=== PATIENT | male | born 1960 | race Caucasian/White ===

== ENCOUNTER 2017-12-27 07:54 | Outpatient (CLI) | payer MEDICARE ==
--- NOTE | 2017-12-27 09:38 | CT ---
CONTRAST ENHANCED CTA ABDOMEN AND PELVIS CONTRAST ENHANCED CTA BILATERAL RUN OFF: History: Atherosclerosis with multiple lower extremity endovascular stents. Technique: Contrast enhanced CTA is performed. 2D and 3D reconstructed images performed on an 2threads 3D workstation. FINDINGS: The lung bases are unremarkable. The liver is unremarkable. Numerous gallstones seen in the gallbladder. The pancreas is unremarkable. Adrenal glands unremarkable. Calcifications seen in the lower pole of the right kidney compatible with nonobstructing lower pole a pproximately 3 mm calculus. No evidence of hydroureteronephrosis is seen. No evidence of periaortic lymphadenopathy is seen. No dilated loops of small bowel or colon seen. Atherosclerotic calcifications seen in the SMA and celiac arteries. Some atherosclerotic plaque is al so seen in the right and left renal artery. No significant evidence of high grade renal artery stenosis seen. Calcified and noncalcified plaque seen in the right and left common iliac artery. Right lower extremity: Minimal but not significant evidence of a right common iliac artery stenosis seen. The right external iliac artery is patent. The right common femoral artery is also patent. Endovascular stent seen in the proximal right SFA, as well as along the course of the entire right gonzalez perficial femoral artery. This vessel and stents are patent in the SFA. The right popliteal artery is patent. The right anterior tibial artery is occluded. Endovascular stents seen in the origin of the right posterior tibial artery as well as the right peroneal artery. There is some minimal flow in the mid and distal aspect of both of these arteries in the right lower extremity. Left lower extremity: The left common and external iliac arteries contain some calcified and noncalcified plaques. No evide nce of high grade occlusion seen. Some surgical changes seen in the origin of the left superficial fe moral artery as well as in the distal left common femoral artery. Flow is seen in the left proximal m id superficial femoral artery. Atherosclerotic plaque is seen in the distal aspect without evidence o f occlusion of the left SFA. Some flow is seen in the left popliteal artery proximally. The left popl iteal artery is occluded in the mid aspect. Endovascular stent seen in the distal left popliteal christianne ry as well as the origin of the left posterior tibial and peroneal artery. Collateral flows are seen in the left knee providing some flow to the left peroneal artery and left posterior tibial arteries. The left anterior artery is occluded. IMPRESSION: 1. Extensive post trifurcation bilateral disease. The left popliteal artery is occluded with collater al flow provided to the left post trifurcation artery distally. 2. Cholelithiasis. POS: C
[2017-12-27] MEDS ORDERED: Iopamidol 370 76% 100 ML VIAL ONE (15:18)
[2017-12-27 16:36] LABS: Estimated GFR-MDRD - POC Greater than 90
== END 2017-12-27 07:55 | disposition home or self-care (01) ==
LOC: CT 07:54
PROVIDERS: ATTEND Thoracic Surgery (Cardiothoracic Vascular Surgery)
DX: I25.119 Atherosclerotic heart disease of native coronary artery with unspecified angina pectoris (principal); I70.213 Atherosclerosis of native arteries of extremities with intermittent claudication, bilateral legs; K80.20 Calculus of gallbladder without cholecystitis without obstruction; I70.8 Atherosclerosis of other arteries
CPT/HCPCS: 75635; 82565

== ENCOUNTER 2019-02-09 09:44 | Inpatient (IN) | payer MEDICARE ==
[2019-02-09] MEDS ORDERED: Ondansetron PF 4 MG/2 ML Vial ONE (10:41)
[2019-02-09 10:52] LABS: #Basophils 0.1 thou/uL (0.0-0.2); #Monocytes 0.6 thou/uL (0.11-0.59); #Neutrophils 5.8 thou/uL (1.40-6.50); %Basophils 0.8 % (0.0-1.0); %Eosinophils 0.6 % (0.0-10.0); %Lymphocytes 12.8 % (21.0-51.0); %Monocytes 8.2 % (0.0-10.0); %Neutrophils 77.7 % (42.0-75.0); Hemoglobin 16.3 g/dL (14.0-18.0); Mean Corpuscular HGB CONC 34.8 g/dL (32.0-36.0); Mean Corpuscular Hemoglobin 31.9 pg (27.0-31.0); Mean Corpuscular Volume 91.7 fL (78.0-98.0); Mean Platelet Volume 7.7 fL (7.4-10.4); Platelet Count 188 thou/uL (130-400); RBC Distribution Width 13.8 % (11.5-14.5); Red Blood Cell (RBC) Count 5.12 mill/uL (4.70-6.10); White Blood Cell (WBC) Count 7.4 thou/uL (4.8-10.8)
[2019-02-09 11:25] LABS: ALT (SGPT) 44 U/L (8-55); AST (SGOT) 77 U/L (5-34); Albumin 4.7 g/dL (3.5-5.0); Alkaline Phosphatase 42 U/L (40-150); Anion Gap 22 mmol/L (10-20); BUN (Urea Nitrogen) 37 mg/dL (8.4-25.7); Bilirubin, Total 0.4 mg/dL (0.2-1.2); CK (CPK) 73 U/L (30-200); Calc. Creatinine Clearance 0 mL/min (70-130); Calcium 9.7 mg/dL (7.8-10.44); Carbon Dioxide 13 mmol/L (22-29); Chloride 97 mmol/L (98-107); Estimated GFR-MDRD 18; Globulin 3.4 g/dL (2.4-3.5); Glucose 187 mg/dL (70-105); Lipase 20 U/L (8-78); Potassium 3.9 mmol/L (3.5-5.1); Protein, Total 8.1 g/dL (6.0-8.3); Sodium 128 mmol/L (136-145)
[2019-02-09] MEDS ORDERED: HumaLOG 300 UNITS/3 ML VIAL SC PRN ×2 (13:28)
[2019-02-09] MEDS ORDERED: Dextrose 5% in Water 1,000 ML IV PRN (13:28)
[2019-02-09] MEDS ORDERED: Dextrose 50% Abboject 50 ML SYRINGE SLOW IVP PRN (13:28)
[2019-02-09] MEDS ORDERED: HYDROcodone/Acetaminophen 7.5/325 mg Tablet PO PRN (13:29)
[2019-02-09] MEDS ORDERED: Ondansetron PF 4 MG/2 ML Vial IVP PRN (13:29)
[2019-02-09] MEDS ORDERED: Calcium Carbonate 500 MG ChewTAB PO PRN (13:29)
[2019-02-09] MEDS ORDERED: Senokot S 8.6-50 MG TAB PO PRN (13:29)
[2019-02-09] MEDS ORDERED: Acetaminophen 325 MG TAB PO PRN (13:29)
[2019-02-09] MEDS ORDERED: Ondansetron ODT 4 MG TAB PO PRN (13:29)
[2019-02-09] MEDS ORDERED: HYDROcodone/Acetaminophen 5/325 mg Tablet PO PRN (13:29)
[2019-02-09] MEDS ORDERED: Bisacodyl 5 MG TAB PO PRN (13:29)
[2019-02-09] MEDS ORDERED: Benzonatate 100 MG CAP PO PRN (13:33)
[2019-02-09] MEDS ORDERED: hydrALAZINE 20 MG/ML VIAL SLOW IVP PRN (13:33)
[2019-02-09] MEDS ORDERED: Docusate 100 MG CAP PO PRN (13:33)
[2019-02-09] MEDS ORDERED: diphenhydrAMINE 25 MG CAP PO PRN (13:33)
--- NOTE | 2019-02-09 15:00 | CON ---
DATE OF CONSULTATION: 02/09/2019 CONSULTING PHYSICIAN: Bhupinder Ceron MD. REASON FOR CONSULTATION: Acute kidney injury. REASON FOR ADMISSION: Weakness. HISTORY OF PRESENT ILLNESS: A 58-year-old male with history of CAD and multiple stents, type 2 diabetes, hypertension, and hyperlipidemia, came to the hospital with weakness and was found to have elevated creatinine. Nephrology is consulted. No chest pain or palpitation. No abdominal pain, but the patient has been having some GI symptoms including diarrhea and vomiting over the last few days and not able to take anything orally. The patient family contacts and also the neighborhood. PAST MEDICAL HISTORY: Positive for CAD, peripheral vascular disease, type 2 diabetes, hypertension, and hyperlipidemia. PAST SURGICAL HISTORY: Cardiac stents and lower extremity stents. HOME MEDICATIONS: Reviewed. ALLERGIES: PENICILLIN. SOCIAL HISTORY: Smokes 1 pack per day and occasionally drinking alcohol. FAMILY HISTORY: Positive for coronary artery disease. REVIEW OF SYSTEMS: CONSTITUTIONAL: Negative for weight loss or gain, ability to conduct usual activities. SKIN: Negative for rash, itching. EYES: Negative for double vision, pain. ENT/MOUTH: Negative for nose bleeding, neck stiffness, pain, tenderness. CARDIOVASCULAR: Negative for palpitations, dyspnea on exertion, orthopnea. RESPIRATORY: Negative for shortness of breath, wheezing, cough, hemoptysis, fever or night sweats. GASTROINTESTINAL: Negative for poor appetite, abdominal pain, heartburn, nausea, vomiting, constipation, or diarrhea. GENITOURINARY: Negative for urgency, frequency, dysuria, nocturia. MUSCULOSKELETAL: Negative for pain, swelling. NEUROLOGIC/PSYCHIATRIC: Negative for anxiety, depression. ALLERGY/IMMUNOLOGIC: Negative for skin rash, bleeding tendency. PHYSICAL EXAMINATION: GENERAL: This is a well-built male, in no apparent distress. VITAL SIGNS: Temperature 96, pulse 79, respiratory rate 18, blood pressure 158/78. HEENT: Atraumatic and normocephalic. Oral mucosa moist. NECK: Supple. CV: S1 and S2 heard. Rate and rhythm are regular. RESPIRATORY: Clear to auscultation. GASTROINTESTINAL: Abdomen is soft. MUSCULOSKELETAL: 1+ edema. DERMATOLOGIC: No skin rash. NEUROLOGIC: Alert and awake. PSYCHIATRIC: Normal mood and affect. LABORATORY DATA: Hemoglobin 16.3. Potassium 3.9, sodium is 129, BUN is 37, creatinine 3.6. ASSESSMENT AND PLAN: 1. Acute kidney injury, most likely from volume depletion. His last creatinine was around 1.3 to 1.08. 2. Hyponatremia. Continue IV fluids. 3. Acidosis. Continue IV fluids. 4. Edema, controlled. 5. Hypertension. 6. Cardiorenal syndrome. 7. Hemoconcentration. Plan is to continue IV fluids. Monitor renal function. Agree with renal ultrasound. Avoid nephrotoxins. Renally dose the medications. We will continue to follow. Thank you for the consult. Job ID: [id number]
[2019-02-09 15:23] VITALS: BMI 27.1
[2019-02-09] MEDS: Sodium Chloride 0.9% 1,000 ML IV SCH (15:47)
--- NOTE | 2019-02-09 15:51 | HP ---
CHIEF COMPLAINT: Nausea, vomiting, diarrhea, and dehydration. HISTORY OF PRESENT ILLNESS: Mr. Carvajal is a very pleasant 58-year-old white gentleman with past medical history of diabetes mellitus, hypertension, hyperlipidemia, coronary artery disease status post coronary artery bypass grafting, and osteoarthritis, who presents with 3 days of worsening nausea, vomiting, and diarrhea. The patient was found to be severely dehydrated with an elevated creatinine of 3.62 on arrival and Nephrology was consulted for further recommendations. The patient's baseline creatinine function is less than 1.0 on prior laboratory studies. I find the patient in the emergency department, he is sitting upright in bed, in no apparent distress, breathing well on room air. The patient states that he thinks he picked up a stomach bug from his neighbor who was sick recently. The patient has had no episodes of vomiting since Sunday morning, though he states he did vomit roughly 10 times. The patient denies black or blood in the vomit. The patient since Sunday has had continuous diarrhea. The patient denies any black or blood in the diarrhea. The patient has no cramping or severe abdominal pains. The patient does have some soreness in the musculature of the back. He states is from going to the bathroom so many times. The patient does try to stay hydrated and has been drinking a lot of Gatorade since the time of illness. When the patient's symptoms were not improving, he was concerned about his dehydration level and he came to the hospital for further evaluation. The patient admitted to medical unit with telemetry for further evaluation. REVIEW OF SYSTEMS: A 10-point review of systems was performed and negative aside of what mentioned in history of present illness. PAST MEDICAL HISTORY: 1. Diabetes mellitus. 2. Hypertension. 3. Hyperlipidemia. 4. Coronary artery disease status post coronary artery bypass grafting. 5. Peripheral arterial disease with multiple stents placement in the legs. 6. Gout. 7. Osteoarthritis. HOME MEDICATIONS: 1. Metformin 1000 mg one tablet p.o. b.i.d. 2. Glipizide 2.5 mg one tablet p.o. daily. 3. Clonidine 0.1 mg one tablet p.o. at bedtime. 4. Coenzyme Q10 200 mg one tablet p.o. daily. 5. Ramipril 10 mg one tablet p.o. daily. 6. Omeprazole 20 mg one tablet p.o. daily. 7. [place]-3 fatty acid fish oil one tablet p.o. t.i.d. 8. [place] 5 mg one tablet p.o. q.4 hours p.r.n. pain. 9. Fenofibrate 145 mg one tablet p.o. daily. 10. Colchicine 0.6 mg one tablet p.o. b.i.d. 11. Plavix 75 mg one tablet p.o. daily. 12. Carvedilol 12.5 mg one tablet p.o. b.i.d. 13. Atorvastatin 10 mg one tablet p.o. daily. 14. Aspirin 325 mg one tablet p.o. daily. ALLERGIES: CODEINE, PENICILLINS. PHYSICAL EXAMINATION: VITAL SIGNS: Temperature 98.7, pulse 85, blood pressure 135/86, and O2 saturation 97% on room air. GENERAL: The patient is alert, oriented, and cooperative with exam. The patient is in no acute cardiopulmonary distress. HEENT: Head is normocephalic and atraumatic. Pupils are equal, round, reactive to light and accommodation. Extraocular muscles intact. Vision is grossly intact. Throat is negative for exudates or erythema around the tonsils. CARDIAC: S1 and S2 present. No appreciated murmurs, rubs, or gallops. LUNGS: Lungs are clear to auscultation bilaterally without appreciated wheezing, rales, or rhonchi. ABDOMEN: Obese, soft, nontender, nondistended without focal guarding or rigidity. There are no appreciated abdominal bruits or hepatosplenomegaly. MUSCULOSKELETAL: Adequate alignment of the spine. Range of motion intact. Spine and extremities are grossly symmetrical and intact with strength. EXTREMITIES: Lower extremities; no significant lower extremity edema bilaterally. NEUROLOGIC: Cranial nerves 2 through 12 are grossly intact. Strength and sensation are symmetric and intact throughout. Skin: Skin is normal in color, texture, and turgor. There are no appreciated lesions or rashes. PSYCHIATRIC: The patient is alert and oriented x3, and has good insight into his clinical condition. The patient has normal affect. No abnormal behaviors or hallucinations. LABORATORY DATA: WBC 7.4, hemoglobin 16.3, hematocrit 46.9, platelets 188. Sodium 128, potassium 3.9, chloride 97, carbon dioxide 13, anion gap 22, BUN 37, creatinine 3.62, estimated GFR 18, glucose 187, calcium 9.7, total bilirubin 0.4, AST 77, ALT 44, alkaline phosphatase 42, creatine kinase 73. Serum total protein 8.1, albumin 4.7, lipase 20. ASSESSMENT/PLAN: 1. Acute renal failure. The patient with severe diarrhea and vomiting for the past several days, now presenting with acute kidney injury. The patient's baseline creatinine is less than 1.0 from prior laboratory data. We will obtain a renal ultrasound. Urinalysis. Urine culture as indicated. Nephrology consultation requested for further recommendations. The patient has already received 3 L of IV fluid in the emergency department. We will continue the patient on normal saline maintenance therapy. 2. Hyponatremia-secondary to profound dehydration as above. 3. Uncontrolled diabetes mellitus. 4. Hypertension. 5. Coronary artery disease status post coronary artery bypass grafting. 6. Peripheral arterial disease with multiple stents in the legs. 7. Elevated BMI. 8. Hyperlipidemia. 9. Gout. Job ID: [id number]
[2019-02-09] MEDS: Carvedilol 6.25 MG TAB PO SCH (16:35)
--- NOTE | 2019-02-09 17:42 | ULT ---
RENAL ULTRASOUND: Date: 02-09-19 Comparison: None. History: Renal insufficiency. Technique: Multiplanar grayscale sonographic imaging of the kidneys and the urinary bladder obtained. FINDINGS: Right kidney measures 10.0 x 5.6 x 4.8 cm. Cortical thickness is 1.5 cm. No right renal mass, hydrone phrosis, or renal stone noted. Urinary bladder demonstrates a volume of approximately 81 cc. Left kidney measures 11.9 x 6.5 x 5.5 cm with a cortical thickness of approximately 2.1 cm. No renal mass, hydronephrosis, or stone noted on the left. IMPRESSION: No acute findings. POS: OFF
[2019-02-10] MEDS: Sodium Chloride 0.9% 1,000 ML IV SCH ×2 (05:40→18:25)
[2019-02-10 06:33] LABS: #Eosinphils 0.1 thou/uL (0.0-0.7); #Lymphocytes 1.1 thou/uL (1.20-3.40); #Monocytes 0.6 thou/uL (0.11-0.59); #Neutrophils 2.7 thou/uL (1.40-6.50); %Basophils 0.9 % (0.0-1.0); %Lymphocytes 25.1 % (21.0-51.0); %Monocytes 12.5 % (0.0-10.0); %Neutrophils 59.5 % (42.0-75.0); Mean Corpuscular HGB CONC 34.6 g/dL (32.0-36.0); Mean Corpuscular Hemoglobin 31.2 pg (27.0-31.0); Mean Corpuscular Volume 90.3 fL (78.0-98.0); Mean Platelet Volume 7.6 fL (7.4-10.4); Platelet Count 169 thou/uL (130-400); RBC Distribution Width 13.5 % (11.5-14.5); Red Blood Cell (RBC) Count 4.18 mill/uL (4.70-6.10); White Blood Cell (WBC) Count 4.6 thou/uL (4.8-10.8)
[2019-02-10 06:56] LABS: Anion Gap 12 mmol/L (10-20); BUN (Urea Nitrogen) 17 mg/dL (8.4-25.7); Calc. Creatinine Clearance 95 mL/min (70-130); Carbon Dioxide 19 mmol/L (22-29); Chloride 104 mmol/L (98-107); Estimated GFR-MDRD 73; Glucose 139 mg/dL (70-105); Sodium 132 mmol/L (136-145)
[2019-02-10] MEDS: Clopidogrel Bisulfate 75 MG TAB PO SCH (08:05)
[2019-02-10] MEDS: Carvedilol 6.25 MG TAB PO SCH ×2 (08:05→16:15)
[2019-02-10] MEDS: Aspirin 325 mg Enteric Coated Tablet PO SCH (08:05)
--- NOTE | 2019-02-10 11:31 | PDOC.HOSPP ---
- Subjective Subjective: Seen and examined. Still with diarrhea all through the night, though he states that is a little improved. Afebrile. Normal WBC count. Able to keep liquids down. Clinically improving. - Objective Vital Signs & Weight: Vital Signs (12 hours) Temp Pulse Resp BP BP Pulse Ox 02/10/19 08:05 128/82 97 02/10/19 07:18 98.0 F 74 20 128/82 97 02/10/19 04:00 98.1 F 85 20 130/78 98 02/10/19 00:41 98.3 F 89 18 132/75 97 Weight Weight 189 lb I&O: 02/09/19 02/10/19 02/11/19 06:59 06:59 06:59 Intake Total 240 Balance 240 Result Diagrams: 02/10/19 05:51 02/10/19 05:51 Additional Labs: Accuchecks 02/10/19 02/09/19 02/09/19 04:49 19:05 16:06 POC Glucose 141 H 161 H 183 H Radiology Reviewed by me: Yes (Renal US) Hospitalist ROS - Review of Systems All other systems reviewed; all pertinent +/- noted in HPI/Subj - Medication Medications: Active Medications Generic Name Dose Route Start Last Admin Trade Name Freq PRN Reason Stop Dose Admin Aspirin 325 mg 02/10/19 09:00 02/10/19 08:05 Ecotrin PO 325 mg DAILY CARY Administration Carvedilol 12.5 mg 02/09/19 17:00 02/10/19 08:05 Coreg PO 12.5 mg BID-WM CARY Administration Clopidogrel Bisulfate 75 mg 02/10/19 09:00 02/10/19 08:05 Plavix PO Not Given DAILY CARY Sodium Chloride 1,000 mls @ 75 mls/hr 02/09/19 13:45 02/10/19 05:40 Normal Saline 0.9% IV 1,000 mls .[id number] CARY Administration Pantoprazole Sodium 40 mg 02/10/19 09:00 02/10/19 08:04 Protonix PO 40 mg DAILY CARY Administration - Exam General Appearance: NAD, awake alert Eye: anicteric sclera Neck: supple, symmetric Heart: RRR, no murmur, no gallops, no rubs Respiratory: CTAB, no wheezes, no rales Gastrointestinal: soft, non-tender, normal bowel sounds, no palpable masses, no guarding, no rigidity Extremities: no edema Skin: no lesions, no rashes Neurological: cranial nerve grossly intact, no weakness Musculoskeletal: no muscle wasting Psychiatric: normal affect, A&O x 3 Hosp A/P (1) NICOLE (acute kidney injury) Code(s): N17.9 - ACUTE KIDNEY FAILURE, UNSPECIFIED Status: Acute (2) Gastroenteritis Code(s): K52.9 - NONINFECTIVE GASTROENTERITIS AND COLITIS, UNSPECIFIED Status : Acute (3) Diarrhea Code(s): R19.7 - DIARRHEA, UNSPECIFIED Status: Acute (4) Dehydration Code(s): E86.0 - DEHYDRATION Status: Acute (5) Vomiting Code(s): R11.10 - VOMITING, UNSPECIFIED Status: Resolved (6) DM type 2, uncontrolled, with neuropathy Code(s): E11.40 - TYPE 2 DIABETES MELLITUS WITH DIABETIC NEUROPATHY, UNSP; E11.65 - TYPE 2 DIABETES MELLITUS WITH HYPERGLYCEMIA Status: Chronic (7) HTN (hypertension) Code(s): I10 - ESSENTIAL (PRIMARY) HYPERTENSION Status: Chronic (8) CAD (coronary artery disease) Code(s): I25.10 - ATHSCL HEART DISEASE OF [place] CORONARY ARTERY W/O ANG PCTRS Status: Chronic (9) PAD (peripheral artery disease) Code(s): I73.9 - PERIPHERAL VASCULAR DISEASE, UNSPECIFIED Status: Chronic - Plan Plan: medical unit/surgical unit nephrology consultation, recommendations appreciated IV fluid resuscitation renal ultrasound noted continue oral intake as able symptomatic medications for nausea and vomiting patient is afebrile normal WBC count no indication for antibiotics at this time viral gastroenteritis will need to run its course renal function is now improving, will anticipate discharge in the next 24 to 48 hours pending clinical improvement patient still with high-volume diarrhea and is at risk for dehydration, when diarrhea slows and oral intake is adequate will plan for discharge home home medications to be continued as able PRN medications for blood pressure control replace electrolytes as needed
[2019-02-11] MEDS: Sodium Chloride 0.9% 1,000 ML IV SCH (05:46)
[2019-02-11 07:40] LABS: Anion Gap 16 mmol/L (10-20); BUN (Urea Nitrogen) 9 mg/dL (8.4-25.7); Calc. Creatinine Clearance 122 mL/min (70-130); Calcium 8.7 mg/dL (7.8-10.44); Carbon Dioxide 16 mmol/L (22-29); Chloride 105 mmol/L (98-107); Estimated GFR-MDRD Greater than 90; Glucose 158 mg/dL (70-105); Potassium 3.2 mmol/L (3.5-5.1); Sodium 134 mmol/L (136-145)
[2019-02-11] MEDS: Carvedilol 6.25 MG TAB PO SCH (09:21)
[2019-02-11] MEDS: Clopidogrel Bisulfate 75 MG TAB PO SCH (09:22)
[2019-02-11] MEDS: Aspirin 325 mg Enteric Coated Tablet PO SCH (09:22)
[2019-02-11 13:13] VITALS: BP 146/59; TEMP 98.3
--- NOTE | 2019-02-12 | DIS ---
DATE OF ADMISSION: 02/09/2019 DATE OF DISCHARGE: 02/11/2019 REASON FOR HOSPITALIZATION: Nausea, vomiting, diarrhea. SIGNIFICANT FINDINGS: The patient was profoundly dehydrated with acute kidney injury on admission. PROCEDURES PERFORMED AND TREATMENTS RENDERED: The patient was placed on IV fluid resuscitation and had nephrology consultation, please see full consultation and progress notes for details. With maximum medical therapy, the patient's renal function normalized and his diarrhea resolved. CONDITION ON DISCHARGE: Stable. SPECIFIC INSTRUCTIONS FOR THE PATIENT/FAMILY: 1. The patient is recommended to stay well hydrated and drink adequate amount of hypertonic solution either Pedialyte or Gatorade daily. The patient is recommended to return to acute care hospital immediately if he is unable to keep liquids down or if he is feeling dehydrated. The patient is recommended to return to acute care hospital immediately if diarrhea or any worsening of other symptoms return. 2. The patient is recommended to follow up with primary care physician in the next 5 to 7 days. 3. The patient is recommended to return to acute care hospital immediately if signs or symptoms return, worsen, or any other new symptoms occur. DISCHARGE MEDICATIONS: Please see full discharge medication list for detail. 1. Metformin. 2. Glipizide. 3. Clonidine. 4. Coenzyme Q10. 5. Ramipril. 6. Omeprazole. 7. [place]-3 fatty acids/fish oil. 8. Hydrocodone. 9. Fenofibrate. 10. Colchicine. 11. Plavix. 12. Carvedilol. 13. Atorvastatin. 14. Aspirin. HOSPITAL COURSE: Mr. Carvajal is a very pleasant 58-year-old gentleman, who presented to [facility] on 02/09/2019 with dehydration, nausea, vomiting, and diarrhea. He was found to have acute kidney injury with a baseline creatinine level of less than 1. On admission, creatinine of 3.62. The patient was seen and evaluated by Urology, had appropriate IV fluid resuscitation and with maximum medical therapy, his creatinine normalized to a level of 0.82 on the day of discharge on 02/11/2019. Stool studies confirmed that the patient was infected with Salmonella in the stool. Treatment for this in review of the literature is mainly supportive therapy and antibiotics actually worsens and prolongs the extent of diarrhea. The patient is afebrile. The patient with normal white blood cell count. The patient's abdominal discomfort and diarrhea have resolved. Due to the dramatic improvement of patient's symptoms with symptomatic therapy and IV hydration, no antibiotic therapy is indicated at this time. I explicitly informed the patient that if future episodes of diarrhea occur, he must be evaluated for carrier state and in extreme cases, surgical involvement for possible removal of the gallbladder may be indicated. The patient acknowledges these risks and state that he will return to the hospital immediately if signs or symptoms return, worsen, or any other new symptoms occur. The patient also states that he will discuss carrier state and salmonella infection with his primary care physician in the outpatient clinic in the next 5 to 7 days. The patient recommended safe for discharge with close followup in the outpatient setting. The patient recommended to stay well hydrated with hypertonic solution either Pedialyte or Gatorade. The patient is recommended to return to acute care hospital immediately if he is unable to maintain hydration or if he is unable to keep fluids down. The patient is recommended to return to acute care hospital immediately if signs or symptoms return, worsen, or any other new symptoms occur. Greater than 38 minutes spent coordinating care and discharge process for this patient. Job ID: [id number]
--- NOTE | 2019-02-13 19:34 | PQF ---
[employer] Reports [employer] NING Barrera ERIC LAXMI HALL [id number] [facility] [id number] CLINICAL DOCUMENTATION CLARIFICATION FORM: POST DISCHARGE Addendum to original discharge summary date: ____ Late entry note date: __ DATE: 02/13/19 ATTN: Laxmi Luna Please exercise your independent, professional judgment in responding to the clarification form. Clinical indicators are provided on the bottom of this form for your review Can you please further specify the diagnosis based on the clinical indicators below? Please check appropriate box(s): [ ] Gastroenteritis due to salmonella [ ] Viral Gastroenteritis [ ] Gastroenteritis unspecified [ ] Other diagnosis please specified [ ] Unable to determine In addition, please specify: Present on Admission (POA): [ ] Yes [ ] No [ ] Unable to determine For continuity of documentation, please document condition throughout progress notes and discharge summary. Thank You. CLINICAL INDICATORS - SIGNS / SYMPTOMS / LABS H and P 02/09 pg.1- "Chief complaint: Nausea, vomiting, diarrhea, and dehydration " H and P 02/09 pg.1-"The patient since sunday has had continous diarrhea" Hospitalist PN pg.3 "Gastroenteritis" Hospitalist PN pg.3 - Viral gastroenteritis will need to runc its cource DS 02/11 pg.1- "The patient was profoundly dehaydrated with acute kidney injury " DS 02/11 pg.2 -"Stool studies confirmed that the patient was infected with Salmonella in the stool" Microbiology 02/09- "Stool culture- Salmonella Group E or G" RISK FACTORS Acute renal failure- H and P pg.3 Hyponatremia- H and P pg.3 Dehydration= H and P pg.3 Diarrhea- H and P pg.1 TREATMENTS: IV Fluids- JUL 27 Stool Culture- Microbiology (This form is maintained as a part of the permanent medical record) 2014 [employer]. All Rights Reserved [email or web address] [not provided] [email or web address]
== END 2019-02-11 11:49 | disposition home or self-care (01) | DRG 683 ==
LOC: ERS 09:44 → T4-B 11:45
PROVIDERS: ADMIT Internal Medicine; ATTEND Internal Medicine
DX: N17.9 Acute kidney failure, unspecified (principal); E87.1 Hypo-osmolality and hyponatremia; E87.2 Acidosis; A08.4 Viral intestinal infection, unspecified; E86.0 Dehydration; I10 Essential (primary) hypertension; E78.5 Hyperlipidemia, unspecified; I25.10 Atherosclerotic heart disease of native coronary artery without angina pectoris; F17.210 Nicotine dependence, cigarettes, uncomplicated; E11.65 Type 2 diabetes mellitus with hyperglycemia; E11.40 Type 2 diabetes mellitus with diabetic neuropathy, unspecified; M19.90 Unspecified osteoarthritis, unspecified site; M10.9 Gout, unspecified; E11.51 Type 2 diabetes mellitus with diabetic peripheral angiopathy without gangrene; Z79.84 Long term (current) use of oral hypoglycemic drugs; Z79.82 Long term (current) use of aspirin; Z79.899 Other long term (current) drug therapy; Z95.1 Presence of aortocoronary bypass graft; Z88.0 Allergy status to penicillin; Z88.5 Allergy status to narcotic agent
CPT/HCPCS: 36415; 36416; 76770; 80048; 80053; 82550; 83690; 85025; 87045; 87046; 87077; 87186; 87324; 87328; 87329; 87427; 87449; 93005; 96361; 96374; J2405

== ENCOUNTER 2020-11-17 11:05 | Inpatient (IN) | payer MEDICARE ==
[~2020-11-17 11:05] MED LIST: Heparin 10,000 UNITS/ 10 ML VIAL ONE; Iopamidol 370 76% 100 ML VIAL ONE; Iopamidol 370 76% 50 ML VIAL FS ONE
[2020-11-17] MEDS ORDERED: Nitroglycerin 2% Ointment 1 INCH/1 GM Packet ONE (11:35)
[2020-11-17] MEDS ORDERED: Aspirin Chewable 81 MG TAB ONE (11:38)
[2020-11-17 11:39] LABS: #Basophils 0.1 thou/uL (0.0-0.2); #Eosinphils 0.4 thou/uL (0.0-0.7); #Lymphocytes 1.7 thou/uL (1.20-3.40); #Monocytes 0.5 thou/uL (0.11-0.59); #Neutrophils 5.6 thou/uL (1.40-6.50); %Basophils 0.9 % (0.0-1.0); %Eosinophils 5.2 % (0.0-10.0); %Lymphocytes 20.8 % (21.0-51.0); %Monocytes 6.5 % (0.0-10.0); %Neutrophils 66.6 % (42.0-75.0); Hemoglobin 12.8 g/dL (14.0-18.0); Mean Corpuscular HGB CONC 34.2 g/dL (32.0-36.0); Mean Corpuscular Hemoglobin 33.9 pg (27.0-31.0); Mean Corpuscular Volume 99.1 fL (78.0-98.0); Mean Platelet Volume 7.9 fL (7.4-10.4); Platelet Count 228 thou/uL (130-400); RBC Distribution Width 12.7 % (11.5-14.5); Red Blood Cell (RBC) Count 3.79 mill/uL (4.70-6.10); White Blood Cell (WBC) Count 8.4 thou/uL (4.8-10.8)
[2020-11-17] MEDS ORDERED: Aspirin 325 MG TAB ONE ×2 (11:39→11:40)
[2020-11-17] MEDS ORDERED: Aspirin 81 mg Enteric Coated Tablet ONE (11:40)
[2020-11-17] MEDS ORDERED: Lidocaine 1% (PF) 30 ML VIAL ONE (11:45)
[2020-11-17] MEDS ORDERED: Fentanyl 100 MCG/2 ML VIAL ONE ×2 (12:03→14:12)
[2020-11-17] MEDS ORDERED: Midazolam HCl 2 mg/2 ml Vial ONE (12:04)
[2020-11-17 12:26] LABS: ALT (SGPT) 26 U/L (8-55); AST (SGOT) 32 U/L (5-34); Albumin 4.7 g/dL (3.5-5.0); Alkaline Phosphatase 47 U/L (40-110); Anion Gap 12 mmol/L (10-20); BUN (Urea Nitrogen) 12 mg/dL (8.4-25.7); Bilirubin, Total 0.6 mg/dL (0.2-1.2); CK (CPK) 99 U/L (30-200); Calc. Creatinine Clearance 0 mL/min (70-130); Calcium 9.7 mg/dL (7.8-10.44); Carbon Dioxide 26 mmol/L (22-29); Chloride 100 mmol/L (98-107); Globulin 2.5 g/dL (2.4-3.5); Glucose 162 mg/dL (70-105); Lipase 26 U/L (8-78); Potassium 4.4 mmol/L (3.5-5.1); Protein, Total 7.2 g/dL (6.0-8.3); Sodium 134 mmol/L (136-145)
[2020-11-17] MEDS ORDERED: Heparin 10,000 UNITS/ 10 ML VIAL ONE (12:39)
[2020-11-17] MEDS ORDERED: TICAGRELOR 90 MG TABLET ONE (13:03)
[2020-11-17 13:05] LABS: CKMB 1.9 ng/mL (0-6.6)
[2020-11-17 14:07] LABS: CKMB 1.8 ng/mL (0-6.6)
[2020-11-17 14:29] LABS: Troponin I 0.792 ng/mL (< 0.028)
[2020-11-17 17:52] VITALS: BMI 30.6
[2020-11-17] MEDS: Sodium Chloride 0.9% 1,000 ML IV SCH (18:36)
[2020-11-17] MEDS ORDERED: Fentanyl 100 MCG/2 ML VIAL SLOW IVP SCH (18:45)
[2020-11-17] MEDS: Rosuvastatin 20 MG TAB PO SCH (20:11)
[2020-11-17 20:33] LABS: CKMB 1.9 ng/mL (0-6.6)
[2020-11-17 20:48] LABS: Troponin I 0.947 ng/mL (< 0.028)
[2020-11-17] MEDS ORDERED: TICAGRELOR 90 MG TABLET PO SCH (21:00)
[2020-11-17] MEDS: ALPRAZolam 0.25 MG TAB PO PRN (22:07)
[2020-11-18] MEDS: Nitroglycerin 0.4 MG TAB (25 Tab Bottle) SL PRN ×2 (04:29→05:24)
[2020-11-18] MEDS ORDERED: Nitroglycerin 2% Ointment 1 INCH/1 GM Packet TOP SCH (05:45)
[2020-11-18 05:58] LABS: #Eosinphils 0.3 thou/uL (0.0-0.7); #Lymphocytes 1.3 thou/uL (1.20-3.40); #Monocytes 0.5 thou/uL (0.11-0.59); #Neutrophils 5.3 thou/uL (1.40-6.50); %Basophils 0.4 % (0.0-1.0); %Eosinophils 3.9 % (0.0-10.0); %Lymphocytes 17.9 % (21.0-51.0); %Monocytes 6.5 % (0.0-10.0); %Neutrophils 71.3 % (42.0-75.0); Hemoglobin 11.6 g/dL (14.0-18.0); Mean Corpuscular HGB CONC 36.5 g/dL (32.0-36.0); Mean Corpuscular Hemoglobin 35.7 pg (27.0-31.0); Mean Corpuscular Volume 97.9 fL (78.0-98.0); Mean Platelet Volume 7.9 fL (7.4-10.4); Platelet Count 181 thou/uL (130-400); RBC Distribution Width 12.7 % (11.5-14.5); Red Blood Cell (RBC) Count 3.24 mill/uL (4.70-6.10); White Blood Cell (WBC) Count 7.4 thou/uL (4.8-10.8)
[2020-11-18 06:16] LABS: ALT (SGPT) 19 U/L (8-55); AST (SGOT) 32 U/L (5-34); Albumin 4.1 g/dL (3.5-5.0); Alkaline Phosphatase 43 U/L (40-110); Anion Gap 15 mmol/L (10-20); BUN (Urea Nitrogen) 9 mg/dL (8.4-25.7); Bilirubin, Total 0.7 mg/dL (0.2-1.2); Calc. Creatinine Clearance 117 mL/min (70-130); Calcium 8.9 mg/dL (7.8-10.44); Carbon Dioxide 19 mmol/L (22-29); Chloride 104 mmol/L (98-107); Globulin 2.5 g/dL (2.4-3.5); Glucose 166 mg/dL (70-105); Potassium 4.2 mmol/L (3.5-5.1); Protein, Total 6.6 g/dL (6.0-8.3); Sodium 134 mmol/L (136-145)
[2020-11-18] MEDS: Sodium Chloride 0.9% 1,000 ML IV SCH (06:18)
[2020-11-18] MEDS: Aspirin Chewable 81 MG TAB PO SCH (08:04)
[2020-11-18] MEDS: Clopidogrel Bisulfate 75 MG TAB PO SCH (08:04)
[2020-11-18 11:25] LABS: SARS-CoV-2 PCR by NAA Not Detected (NotDetected)
[2020-11-18] MEDS ORDERED: Dextrose 5% in Water 1,000 ML IV PRN (14:30)
[2020-11-18] MEDS ORDERED: Dextrose 50% Abboject 50 ML SYRINGE IVP PRN (14:30)
[2020-11-18 14:36] LABS: #Eosinphils 0.3 thou/uL (0.0-0.7); #Lymphocytes 1.4 thou/uL (1.20-3.40); #Monocytes 0.5 thou/uL (0.11-0.59); %Basophils 0.5 % (0.0-1.0); %Eosinophils 4.1 % (0.0-10.0); %Lymphocytes 22.2 % (21.0-51.0); %Monocytes 7.5 % (0.0-10.0); %Neutrophils 65.7 % (42.0-75.0); Hemoglobin 12.3 g/dL (14.0-18.0); Mean Corpuscular HGB CONC 36.9 g/dL (32.0-36.0); Mean Corpuscular Hemoglobin 35.8 pg (27.0-31.0); Mean Corpuscular Volume 97.1 fL (78.0-98.0); Mean Platelet Volume 7.5 fL (7.4-10.4); Platelet Count 186 thou/uL (130-400); RBC Distribution Width 12.5 % (11.5-14.5); Red Blood Cell (RBC) Count 3.44 mill/uL (4.70-6.10); White Blood Cell (WBC) Count 6.1 thou/uL (4.8-10.8)
[2020-11-18 14:49] LABS: Anion Gap 15 mmol/L (10-20); BUN (Urea Nitrogen) 8 mg/dL (8.4-25.7); Calc. Creatinine Clearance 116 mL/min (70-130); Calcium 9.5 mg/dL (7.8-10.44); Carbon Dioxide 19 mmol/L (22-29); Chloride 107 mmol/L (98-107); Glucose 157 mg/dL (70-105); Potassium 4.3 mmol/L (3.5-5.1); Sodium 137 mmol/L (136-145)
[2020-11-18] MEDS: ALPRAZolam 0.25 MG TAB PO PRN (14:49)
[2020-11-18] MEDS: Insulin Regular 300 UNITS/3 ML VIAL SC PRN (17:13)
[2020-11-18] MEDS ORDERED: ALPRAZolam 0.25 MG TAB PO SCH (21:30)
[2020-11-18] MEDS: Rosuvastatin 20 MG TAB PO SCH (21:34)
[2020-11-18] MEDS ORDERED: Insulin Regular 300 UNITS/3 ML VIAL SC PRN (22:00)
[2020-11-19 05:05] LABS: #Eosinphils 0.3 thou/uL (0.0-0.7); #Lymphocytes 1.3 thou/uL (1.20-3.40); #Monocytes 0.4 thou/uL (0.11-0.59); %Basophils 0.3 % (0.0-1.0); %Eosinophils 3.9 % (0.0-10.0); %Lymphocytes 18.6 % (21.0-51.0); %Monocytes 6.2 % (0.0-10.0); Hemoglobin 12.3 g/dL (14.0-18.0); Mean Corpuscular HGB CONC 34.9 g/dL (32.0-36.0); Mean Corpuscular Hemoglobin 34.2 pg (27.0-31.0); Mean Platelet Volume 8.1 fL (7.4-10.4); Platelet Count 183 thou/uL (130-400); RBC Distribution Width 12.9 % (11.5-14.5); Red Blood Cell (RBC) Count 3.59 mill/uL (4.70-6.10); White Blood Cell (WBC) Count 7.1 thou/uL (4.8-10.8)
[2020-11-19 05:25] LABS: ALT (SGPT) 17 U/L (8-55); AST (SGOT) 29 U/L (5-34); Albumin 4.2 g/dL (3.5-5.0); Alkaline Phosphatase 50 U/L (40-110); Anion Gap 16 mmol/L (10-20); BUN (Urea Nitrogen) 8 mg/dL (8.4-25.7); Bilirubin, Total 0.6 mg/dL (0.2-1.2); Calc. Creatinine Clearance 108 mL/min (70-130); Calcium 9.1 mg/dL (7.8-10.44); Carbon Dioxide 17 mmol/L (22-29); Chloride 108 mmol/L (98-107); Globulin 2.6 g/dL (2.4-3.5); Glucose 184 mg/dL (70-105); Potassium 4.2 mmol/L (3.5-5.1); Protein, Total 6.8 g/dL (6.0-8.3); Sodium 137 mmol/L (136-145)
[2020-11-19] MEDS: Insulin Regular 300 UNITS/3 ML VIAL SC PRN ×2 (06:19→11:37)
[2020-11-19] MEDS ORDERED: glipiZIDE 5 MG TAB PO SCH ×2 (07:30→16:30)
[2020-11-19] MEDS: Aspirin Chewable 81 MG TAB PO SCH (08:35)
[2020-11-19] MEDS: Clopidogrel Bisulfate 75 MG TAB PO SCH (08:36)
[2020-11-19] MEDS ORDERED: Pioglitazone HCl 15 MG TAB PO SCH (09:00)
[2020-11-19 11:55] VITALS: TEMP 98.9
[2020-11-19 12:21] VITALS: BP 175/82
[2020-11-19] MEDS ORDERED: Icosapent Ethyl 1 GM CAPSULE PO SCH (17:00)
[2020-11-19] MEDS ORDERED: Amitriptyline HCl 10 MG TAB PO SCH (21:00)
[2020-11-19] MEDS ORDERED: cloNIDine 0.1 MG TAB PO SCH (21:00)
[2020-11-19] MEDS ORDERED: Carvedilol 25 MG TAB PO SCH (21:00)
[2020-11-19] MEDS ORDERED: GABAPENTIN ENACARBIL 600 MG PO SCH (21:00)
[2020-11-19] MEDS ORDERED: Amlodipine 5 MG TAB PO SCH (21:00)
[2020-11-20] MEDS ORDERED: Tamsulosin HCl 0.4 MG CAP PO SCH (09:00)
[2020-11-20] MEDS ORDERED: Pioglitazone HCl 15 MG TAB PO SCH (09:00)
== END 2020-11-19 15:45 | disposition home or self-care (01) | DRG 247 ==
LOC: ERS 11:05 → CCL 12:07 → SURG A 13:05 → 2NO 17:36
PROVIDERS: ADMIT Internal Medicine Cardiovascular Disease; ATTEND Internal Medicine Cardiovascular Disease
PROC: 027034Z Dilation of Coronary Artery, One Artery with Drug-eluting Intraluminal Device, Percutaneous Approach (ICD-10-PCS; principal; 2020-11-17)
PROC: 02C03ZZ Extirpation of Matter from Coronary Artery, One Artery, Percutaneous Approach (ICD-10-PCS; 2020-11-17)
PROC: 4A023N7 Measurement of Cardiac Sampling and Pressure, Left Heart, Percutaneous Approach (ICD-10-PCS; 2020-11-17)
PROC: B2111ZZ Fluoroscopy of Multiple Coronary Arteries using Low Osmolar Contrast (ICD-10-PCS; 2020-11-17)
DX: I21.19 ST elevation (STEMI) myocardial infarction involving other coronary artery of inferior wall (principal); I50.32 Chronic diastolic (congestive) heart failure; I25.810 Atherosclerosis of coronary artery bypass graft(s) without angina pectoris; I11.0 Hypertensive heart disease with heart failure; E78.5 Hyperlipidemia, unspecified; I25.5 Ischemic cardiomyopathy; F41.9 Anxiety disorder, unspecified; E11.51 Type 2 diabetes mellitus with diabetic peripheral angiopathy without gangrene; E11.40 Type 2 diabetes mellitus with diabetic neuropathy, unspecified; Z95.5 Presence of coronary angioplasty implant and graft; Z88.0 Allergy status to penicillin; Z88.5 Allergy status to narcotic agent; Z95.1 Presence of aortocoronary bypass graft; Z88.8 Allergy status to other drugs, medicaments and biological substances
CPT/HCPCS: 36415; 36416; 71045; 76942; 80053; 82550; 82553; 83690; 83880; 84484; 85025; 85347; 92941; 93005; 93010; 93306; 93459; 93798; 96374; 99152; 99153; C1769; C9606; J1644; J1815; J2001; J2250; J3010; Q9967; U0003; U0005

== ENCOUNTER 2020-11-25 07:25 | Observation (INO) | payer MEDICARE ==
[2020-11-25 07:59] LABS: #Basophils 0.1 thou/uL (0.0-0.2); #Eosinphils 0.3 thou/uL (0.0-0.7); #Lymphocytes 1.8 thou/uL (1.20-3.40); #Monocytes 0.5 thou/uL (0.11-0.59); #Neutrophils 5.4 thou/uL (1.40-6.50); %Basophils 0.7 % (0.0-1.0); %Eosinophils 4.3 % (0.0-10.0); %Lymphocytes 22.3 % (21.0-51.0); %Monocytes 6.1 % (0.0-10.0); %Neutrophils 66.6 % (42.0-75.0); Hemoglobin 13.5 g/dL (14.0-18.0); Mean Corpuscular HGB CONC 34.3 g/dL (32.0-36.0); Mean Corpuscular Hemoglobin 33.7 pg (27.0-31.0); Mean Corpuscular Volume 98.3 fL (78.0-98.0); Platelet Count 265 thou/uL (130-400); RBC Distribution Width 12.4 % (11.5-14.5); White Blood Cell (WBC) Count 8.1 thou/uL (4.8-10.8)
[2020-11-25 08:23] LABS: ALT (SGPT) 20 U/L (8-55); AST (SGOT) 32 U/L (5-34); Albumin 4.6 g/dL (3.5-5.0); Alkaline Phosphatase 52 U/L (40-110); Anion Gap 20 mmol/L (10-20); BUN (Urea Nitrogen) 19 mg/dL (8.4-25.7); Bilirubin, Total 0.4 mg/dL (0.2-1.2); Calc. Creatinine Clearance 0 mL/min (70-130); Calcium 10.6 mg/dL (7.8-10.44); Carbon Dioxide 19 mmol/L (22-29); Chloride 104 mmol/L (98-107); Globulin 2.8 g/dL (2.4-3.5); Glucose 209 mg/dL (70-105); Lipase 35 U/L (8-78); Protein, Total 7.4 g/dL (6.0-8.3); Sodium 138 mmol/L (136-145)
[2020-11-25 08:35] LABS: CKMB 1.7 ng/mL (0-6.6)
[2020-11-25] MEDS ORDERED: Enoxaparin Sodium 100 MG/ML SYRINGE ONE (10:10)
[2020-11-25] MEDS ORDERED: Dextrose 50% Abboject 50 ML SYRINGE SLOW IVP PRN (10:43)
[2020-11-25] MEDS ORDERED: Ondansetron PF 4 MG/2 ML Vial IVP PRN (10:43)
[2020-11-25] MEDS ORDERED: Dextrose 5% in Water 1,000 ML IV PRN (10:43)
[2020-11-25] MEDS ORDERED: HumaLOG 300 UNITS/3 ML VIAL SC PRN ×2 (10:43)
[2020-11-25] MEDS ORDERED: Acetaminophen 325 MG TAB PO PRN (10:43)
[2020-11-25] MEDS ORDERED: Guaifenesin DM 100-10/5 ML UDCUP PO PRN (10:43)
[2020-11-25] MEDS ORDERED: Calcium Carbonate 500 MG ChewTAB PO PRN (10:43)
[2020-11-25] MEDS ORDERED: Senokot S 8.6-50 MG TAB PO PRN (10:43)
[2020-11-25] MEDS ORDERED: Communication Order-Pharmacy FS ONE (10:44)
[2020-11-25 11:16] LABS: Troponin I 0.095 ng/mL (< 0.028)
[2020-11-25 11:39] LABS: Hemoglobin 13.5 g/dL (14.0-18.0); Platelet Count 246 thou/uL (130-400)
[2020-11-25] MEDS ORDERED: Nitroglycerin 2% Ointment 1 INCH/1 GM Packet ONE (14:05)
[2020-11-25 14:50] LABS: Troponin I 0.081 ng/mL (< 0.028)
[2020-11-25] MEDS ORDERED: Fentanyl 100 MCG/2 ML VIAL SLOW IVP SCH (16:24)
[2020-11-25] MEDS: glipiZIDE 5 MG TAB PO SCH (16:56)
[2020-11-25] MEDS: Icosapent Ethyl 1 GM CAPSULE PO SCH (16:56)
[2020-11-25] MEDS: Nitroglycerin 2% Ointment 1 INCH/1 GM Packet TOP SCH ×2 (16:59→21:18)
[2020-11-25 17:03] VITALS: BMI 29.6
[2020-11-25] MEDS ORDERED: TICAGRELOR 90 MG TABLET PO SCH (17:30)
[2020-11-25] MEDS ORDERED: Ketorolac Tromethamine 30 MG/ML VIAL IVP SCH (17:30)
[2020-11-25] MEDS ORDERED: Rosuvastatin 20 MG TAB PO SCH (21:00)
[2020-11-25] MEDS ORDERED: Carvedilol 6.25 MG TAB PO SCH (21:00)
[2020-11-25] MEDS ORDERED: Enoxaparin Sodium 100 MG/ML SYRINGE SC SCH (21:00)
[2020-11-25] MEDS ORDERED: Amitriptyline HCl 10 MG TAB PO SCH (21:00)
[2020-11-25] MEDS ORDERED: GABAPENTIN ENACARBIL 600 MG PO SCH (21:00)
[2020-11-25] MEDS: Colchicine 0.6 MG TAB PO SCH (21:13)
[2020-11-25] MEDS: Amlodipine 5 MG TAB PO SCH (21:13)
[2020-11-25] MEDS: Gabapentin 300 MG CAP PO SCH (21:15)
[2020-11-25] MEDS: Lisinopril 5 MG TAB PO SCH (21:16)
[2020-11-25] MEDS: Metoprolol Tartrate 25 MG TAB PO SCH (21:17)
[2020-11-25] MEDS ORDERED: Albuterol Sulfate 2.5 mg/3 ml Neb NEB PRN (21:29)
[2020-11-26] MEDS: Ketorolac Tromethamine 30 MG/ML VIAL IVP SCH ×3 (00:59→11:31)
[2020-11-26] MEDS ORDERED: Lorazepam 0.5 MG TAB PO SCH (01:00)
[2020-11-26 05:17] LABS: #Basophils 0.1 thou/uL (0.0-0.2); #Eosinphils 0.4 thou/uL (0.0-0.7); #Lymphocytes 2.1 thou/uL (1.20-3.40); #Monocytes 0.6 thou/uL (0.11-0.59); #Neutrophils 3.3 thou/uL (1.40-6.50); %Basophils 1.1 % (0.0-1.0); %Eosinophils 6.4 % (0.0-10.0); %Monocytes 9.8 % (0.0-10.0); %Neutrophils 50.7 % (42.0-75.0); Hemoglobin 12.5 g/dL (14.0-18.0); Mean Corpuscular HGB CONC 35.2 g/dL (32.0-36.0); Mean Corpuscular Hemoglobin 34.3 pg (27.0-31.0); Mean Corpuscular Volume 97.6 fL (78.0-98.0); Mean Platelet Volume 8.1 fL (7.4-10.4); Platelet Count 207 thou/uL (130-400); RBC Distribution Width 12.4 % (11.5-14.5); Red Blood Cell (RBC) Count 3.65 mill/uL (4.70-6.10); White Blood Cell (WBC) Count 6.5 thou/uL (4.8-10.8)
[2020-11-26 05:43] LABS: Anion Gap 15 mmol/L (10-20); BUN (Urea Nitrogen) 17 mg/dL (8.4-25.7); Calc. Creatinine Clearance 90 mL/min (70-130); Calcium 9.7 mg/dL (7.8-10.44); Carbon Dioxide 23 mmol/L (22-29); Chloride 105 mmol/L (98-107); Glucose 141 mg/dL (70-105); Potassium 3.9 mmol/L (3.5-5.1); Sodium 139 mmol/L (136-145)
[2020-11-26] MEDS: Nitroglycerin 2% Ointment 1 INCH/1 GM Packet TOP SCH ×2 (07:26→15:28)
[2020-11-26 08:22] LABS: Troponin I 0.105 ng/mL (< 0.028)
[2020-11-26] MEDS ORDERED: Clopidogrel Bisulfate 75 MG TAB PO SCH (09:00)
[2020-11-26] MEDS ORDERED: TICAGRELOR 90 MG TABLET PO SCH (09:00)
[2020-11-26] MEDS ORDERED: Pioglitazone HCl 15 MG TAB PO SCH (09:00)
[2020-11-26] MEDS ORDERED: Tamsulosin HCl 0.4 MG CAP PO SCH (09:00)
[2020-11-26] MEDS ORDERED: Aspirin Chewable 81 MG TAB PO SCH (09:00)
[2020-11-26] MEDS: Metoprolol Tartrate 25 MG TAB PO SCH (09:22)
[2020-11-26] MEDS: glipiZIDE 5 MG TAB PO SCH (09:24)
[2020-11-26] MEDS: Amlodipine 5 MG TAB PO SCH (09:24)
[2020-11-26] MEDS: Gabapentin 300 MG CAP PO SCH (09:26)
[2020-11-26] MEDS: Icosapent Ethyl 1 GM CAPSULE PO SCH (09:27)
[2020-11-26] MEDS: Colchicine 0.6 MG TAB PO SCH (09:28)
[2020-11-26] MEDS: Lisinopril 5 MG TAB PO SCH (10:56)
[2020-11-26 11:14] LABS: SARS-CoV-2 PCR by NAA Not Detected (NotDetected)
[2020-11-26 12:22] VITALS: BP 132/60; TEMP 98.1
== END 2020-11-26 15:50 | disposition home or self-care (01) ==
LOC: ERS 07:25 → ERHOLD 09:50 → 2SW 15:17
PROVIDERS: ADMIT Internal Medicine; ATTEND Internal Medicine
DX: I25.110 Atherosclerotic heart disease of native coronary artery with unstable angina pectoris (principal); I31.9 Disease of pericardium, unspecified; I21.19 ST elevation (STEMI) myocardial infarction involving other coronary artery of inferior wall; I42.9 Cardiomyopathy, unspecified; E11.40 Type 2 diabetes mellitus with diabetic neuropathy, unspecified; E11.65 Type 2 diabetes mellitus with hyperglycemia; I10 Essential (primary) hypertension; N40.0 Benign prostatic hyperplasia without lower urinary tract symptoms; E78.5 Hyperlipidemia, unspecified; Z79.01 Long term (current) use of anticoagulants; Z79.84 Long term (current) use of oral hypoglycemic drugs; Z79.899 Other long term (current) drug therapy; Z88.0 Allergy status to penicillin; Z88.5 Allergy status to narcotic agent; Z95.1 Presence of aortocoronary bypass graft; Z87.891 Personal history of nicotine dependence; Z20.822 Contact with and (suspected) exposure to COVID-19
CPT/HCPCS: 71045; 80048; 80053; 82553; 82962 ×2; 83690; 84484 ×3; 85014; 85018; 85025 ×2; 85049; 93005 ×2; 94640; 96372; 99285; U0003; U0005; 36415; 36416; 93010; 96374; 96375; 96376; G0378; J1650; J1815; J1885; J3010; J7611

== ENCOUNTER 2021-11-14 17:42 | Inpatient (IN) | payer MEDICARE, BC ==
[2021-11-14 21:13] VITALS: BMI 28.7
[2021-11-14] MEDS ORDERED: HumaLOG 300 UNITS/3 ML VIAL SC PRN ×2 (22:08)
[2021-11-14] MEDS ORDERED: Dextrose 50% Abboject 50 ML SYRINGE SLOW IVP PRN (22:08)
[2021-11-14] MEDS ORDERED: Dextrose 5% in Water 1,000 ML IV PRN (22:08)
[2021-11-14] MEDS ORDERED: Ondansetron PF 4 MG/2 ML Vial IVP PRN (22:08)
[2021-11-14] MEDS ORDERED: Gabapentin 300 MG CAP PO SCH (22:30)
[2021-11-14] MEDS ORDERED: Amitriptyline HCl 10 MG TAB PO SCH (22:30)
[2021-11-14] MEDS ORDERED: Carvedilol 25 MG TAB PO SCH (22:30)
[2021-11-14] MEDS: Sodium Chloride 0.9% 1,000 ML IV SCH (22:41)
[2021-11-14] MEDS: HYDROcodone/Acetaminophen 5/325 mg Tablet PO PRN (22:41)
[2021-11-15] MEDS: Albuterol 200 PUFF (6.7GM INHALER) INH SCH ×4 (00:51→21:49)
[2021-11-15] MEDS: HYDROcodone/Acetaminophen 5/325 mg Tablet PO PRN ×4 (02:24→20:17)
[2021-11-15 05:43] LABS: PTT 33.8 sec (22.9-36.1); Prothrombin Time 12.9 sec (12.0-14.7)
[2021-11-15 06:03] LABS: ALT (SGPT) 21 U/L (8-55); AST (SGOT) 26 U/L (5-34); Albumin 3.5 g/dL (3.5-5.0); Alkaline Phosphatase 43 U/L (40-110); Anion Gap 12 mmol/L (10-20); BUN (Urea Nitrogen) 19 mg/dL (8.4-25.7); Bilirubin, Total 0.4 mg/dL (0.2-1.2); Calc. Creatinine Clearance 81 mL/min (70-130); Calcium 9.3 mg/dL (7.8-10.44); Carbon Dioxide 27 mmol/L (22-29); Chloride 104 mmol/L (98-107); Globulin 2.5 g/dL (2.4-3.5); Glucose 178 mg/dL (70-105); Potassium 3.8 mmol/L (3.5-5.1); Sodium 139 mmol/L (136-145)
[2021-11-15] MEDS: Carvedilol 25 MG TAB PO SCH ×2 (06:03→20:17)
[2021-11-15 06:08] LABS: Band 6 % (5-11); Hemoglobin 14.2 g/dL (14.0-18.0); Lymphocytes 46 % (21-51); MDiff Complete? YES; Mean Corpuscular Hemoglobin 34.4 pg (27.0-31.0); Neutrophil 48 % (42-75); Platelet Count 163 thou/uL (130-400); Platelet Morphology Comment Appears Adequate; RBC Distribution Width 12.9 % (11.5-14.5); RBC Morphology Normal; Red Blood Cell (RBC) Count 4.12 mill/uL (4.70-6.10); White Blood Cell (WBC) Count 3.6 thou/uL (4.8-10.8)
[2021-11-15] MEDS: Amlodipine 5 MG TAB PO SCH ×2 (07:35→20:18)
[2021-11-15] MEDS: Gabapentin 300 MG CAP PO SCH ×2 (07:35→20:17)
[2021-11-15] MEDS: Rosuvastatin 20 MG TAB PO SCH (07:35)
[2021-11-15] MEDS: Tamsulosin HCl 0.4 MG CAP PO SCH (07:36)
[2021-11-15] MEDS ORDERED: fentaNYL Citrate/PF 100 MCG/2 ML SYRINGE ONE (10:37)
[2021-11-15] MEDS ORDERED: Heparin 5,000 UNITS/ML VIAL ONE (10:39)
[2021-11-15] MEDS ORDERED: EPINEPHrine 1 MG/ML AMP ONE (10:39)
[2021-11-15] MEDS ORDERED: Bupivacaine 0.25% HCL 30 ML VIAL ONE (10:39)
[2021-11-15] MEDS ORDERED: Levofloxacin 500 mg/D5W 100 ml Premix Bag ONE (11:20)
[2021-11-15] MEDS ORDERED: PROPOFOL 200 MG/20 ML VIAL ONE (11:26)
[2021-11-15] MEDS ORDERED: Lidocaine 1% PF 5 ML VIAL ONE (11:26)
[2021-11-15] MEDS ORDERED: Succinylcholine 200 MG/10 ml SYRINGE FS ONE (11:26)
[2021-11-15] MEDS ORDERED: Rocuronium Bromide 10 MG/ML (10ML VIAL) ONE (11:26)
[2021-11-15] MEDS: Sodium Chloride 0.9% 1,000 ML IV SCH (14:02)
[2021-11-15] MEDS ORDERED: Protamine Sulfate 50 MG/5 ML VIAL ONE ×2 (14:02→14:28)
[2021-11-15] MEDS ORDERED: Heparin 10,000 UNITS/ 10 ML VIAL ONE (14:07)
[2021-11-15] MEDS ORDERED: Fentanyl 100 MCG/2 ML VIAL ONE ×2 (15:29→15:31)
[2021-11-15] MEDS ORDERED: Fentanyl 100 MCG/2 ML VIAL SLOW IVP PRN (16:00)
[2021-11-15] MEDS ORDERED: Sodium Chloride 0.9% 1,000 ML IV SCH (16:00)
[2021-11-15] MEDS ORDERED: Amitriptyline HCl 10 MG TAB PO SCH (21:00)
[2021-11-16] MEDS: HYDROcodone/Acetaminophen 5/325 mg Tablet PO PRN ×2 (00:38→10:22)
[2021-11-16] MEDS: Albuterol 200 PUFF (6.7GM INHALER) INH SCH ×2 (00:42→06:11)
[2021-11-16] MEDS ORDERED: metFORMIN 850 MG TAB PO SCH (08:00)
[2021-11-16] MEDS: Gabapentin 300 MG CAP PO SCH (08:36)
[2021-11-16] MEDS: Rosuvastatin 20 MG TAB PO SCH (08:36)
[2021-11-16] MEDS: Carvedilol 25 MG TAB PO SCH (08:37)
[2021-11-16] MEDS: Tamsulosin HCl 0.4 MG CAP PO SCH (08:37)
[2021-11-16] MEDS: Amlodipine 5 MG TAB PO SCH (08:37)
[2021-11-16 08:46] VITALS: BP 148/75; TEMP 97.8
[2021-11-16] MEDS ORDERED: Clopidogrel Bisulfate 75 MG TAB PO SCH (09:00)
[2021-11-16] MEDS ORDERED: Enoxaparin Sodium 30 MG/0.3 ML SYRINGE SC SCH (09:00)
[2021-11-16] MEDS ORDERED: Aspirin 81 mg Enteric Coated Tablet PO SCH (09:00)
[2021-11-16] MEDS ORDERED: Pioglitazone HCl 15 MG TAB PO SCH (09:00)
== END 2021-11-16 11:59 | disposition home or self-care (01) | DRG 252 ==
LOC: T4-B 20:06
PROVIDERS: ADMIT Family Medicine; ATTEND Hospitalist
PROC: 8E0ZXY6 Isolation (ICD-10-PCS; 2021-11-14)
PROC: 04CK0ZZ Extirpation of Matter from Right Femoral Artery, Open Approach (ICD-10-PCS; principal; 2021-11-15)
PROC: 041K0JL Bypass Right Femoral Artery to Popliteal Artery with Synthetic Substitute, Open Approach (ICD-10-PCS; 2021-11-15)
DX: E11.51 Type 2 diabetes mellitus with diabetic peripheral angiopathy without gangrene (principal); U07.1 COVID-19; J12.82 Pneumonia due to coronavirus disease 2019; I70.221 Atherosclerosis of native arteries of extremities with rest pain, right leg; I10 Essential (primary) hypertension; Z28.310 Unvaccinated for COVID-19; E78.5 Hyperlipidemia, unspecified; I25.10 Atherosclerotic heart disease of native coronary artery without angina pectoris; E11.42 Type 2 diabetes mellitus with diabetic polyneuropathy; E11.65 Type 2 diabetes mellitus with hyperglycemia; Z79.899 Other long term (current) drug therapy; Z79.82 Long term (current) use of aspirin; Z79.84 Long term (current) use of oral hypoglycemic drugs; Z79.02 Long term (current) use of antithrombotics/antiplatelets; Z88.0 Allergy status to penicillin; Z88.6 Allergy status to analgesic agent; Z88.5 Allergy status to narcotic agent
CPT/HCPCS: 36415; 36416; 80053; 85025; 85610; 85730; 86850; 86900; 86901; C1768; C1776; C1786; J0171; J1644; J1815; J1956; J2704; J2720; J3010; J7050; S0020

== ENCOUNTER 2021-12-29 14:55 | Outpatient (CLI) | payer MEDICARE, BC ==
[2021-12-29 15:53] LABS: Hemoglobin 13.3 g/dL (13.5-17.5); Mean Corpuscular HGB CONC 34.4 g/dL (32.0-36.0); Mean Corpuscular Hemoglobin 32.5 pg (27.0-33.0); Mean Corpuscular Volume 94.6 fl (81.2-95.1); Mean Platelet Volume 9.9 fl (7.4-10.4); Platelet Count 288 10x3/uL (150-450); RBC Distribution Width 13.1 % (11.5-14.5); Red Blood Cell (RBC) Count 4.09 10x6/uL (4.32-5.72)
[2021-12-29 16:17] LABS: Anion Gap 16 mmol/L (10-20); BUN (Urea Nitrogen) 14 mg/dL (8.4-25.7); Calc. Creatinine Clearance 0 mL/min (70-130); Carbon Dioxide 23 mmol/L (22-29); Chloride 99 mmol/L (98-107); Estimated GFR 68; Glucose 226 mg/dL (70-105); Potassium 4.2 mmol/L (3.5-5.1); Sodium 134 mmol/L (136-145)
== END 2021-12-29 14:56 | disposition home or self-care (01) ==
LOC: LABBT 14:55
PROVIDERS: ATTEND Thoracic Surgery (Cardiothoracic Vascular Surgery)
DX: Z01.818 Encounter for other preprocedural examination (principal); S31.103A Unspecified open wound of abdominal wall, right lower quadrant without penetration into peritoneal cavity, initial encounter; I73.9 Peripheral vascular disease, unspecified
CPT/HCPCS: 80048; 85027; 93005; 93010

== ENCOUNTER 2021-12-29 15:15 | Inpatient (IN) | payer MEDICARE, BC ==
[2021-12-30] MEDS ORDERED: fentaNYL Citrate/PF 100 MCG/2 ML SYRINGE ONE (06:23)
[2021-12-30] MEDS ORDERED: Midazolam HCl 2 mg/2 ml Vial ONE (06:23)
[2021-12-30] MEDS ORDERED: Gentamicin Sulfate 80 MG in Premix Bag 1 BAG IVPB SCH ×3 (07:15→17:00)
[2021-12-30] MEDS ORDERED: Ondansetron PF 4 MG/2 ML Vial ONE (07:49)
[2021-12-30] MEDS ORDERED: Lidocaine 1% PF 5 ML VIAL ONE (07:49)
[2021-12-30] MEDS ORDERED: PROPOFOL 200 MG/20 ML VIAL ONE (07:49)
[2021-12-30] MEDS ORDERED: hydrALAZINE 20 MG/ML VIAL ONE (08:35)
[2021-12-30] MEDS ORDERED: HYDROmorphone 2 MG/ML VIAL ONE ×2 (08:44→10:44)
[2021-12-30] MEDS ORDERED: Fentanyl 100 MCG/2 ML VIAL ONE ×2 (09:15→13:26)
[2021-12-30] MEDS ORDERED: diphenhydrAMINE 50 MG/ML VIAL ONE (09:31)
[2021-12-30] MEDS ORDERED: hydrALAZINE 20 MG/ML VIAL SLOW IVP PRN (14:44)
[2021-12-30] MEDS ORDERED: Ondansetron HCl/PF 4 MG/2 ML Vial IVP PRN (14:45)
[2021-12-30] MEDS ORDERED: Ketorolac Tromethamine 30 MG/ML VIAL IM/IV PRN (14:45)
[2021-12-30] MEDS ORDERED: Promethazine HCl 25 MG/ML VIAL IM/IV PRN (14:45)
[2021-12-30] MEDS ORDERED: HYDROmorphone 2 MG/ML VIAL SLOW IVP PRN (14:45)
[2021-12-30] MEDS ORDERED: HYDROcodone/Acetaminophen 5/325 mg Tablet PO PRN (15:31)
[2021-12-30] MEDS ORDERED: Dextrose 50% Abboject 50 ML SYRINGE SLOW IVP PRN (15:31)
[2021-12-30] MEDS ORDERED: Ondansetron PF 4 MG/2 ML Vial IVP PRN (15:31)
[2021-12-30] MEDS ORDERED: Acetaminophen 325 MG TAB PO PRN (15:31)
[2021-12-30] MEDS ORDERED: Dextrose 5% in Water 1,000 ML IV PRN (15:31)
[2021-12-30] MEDS ORDERED: Amlodipine 5 MG TAB PO SCH (15:45)
[2021-12-30] MEDS ORDERED: Polyethylene Glycol 3350 17 GM Packet PO SCH (16:00)
[2021-12-30] MEDS ORDERED: Clopidogrel Bisulfate 75 MG TAB PO SCH (16:00)
[2021-12-30] MEDS ORDERED: Aspirin 325 mg Enteric Coated Tablet PO SCH (16:00)
[2021-12-30] MEDS ORDERED: glipiZIDE 5 MG TAB PO SCH (16:00)
[2021-12-30] MEDS ORDERED: Famotidine 20 MG TAB PO SCH (16:00)
[2021-12-30] MEDS ORDERED: Enoxaparin Sodium 40 MG/0.4 ML SYRINGE SC SCH (16:15)
[2021-12-30] MEDS ORDERED: Gabapentin 300 MG CAP PO SCH (16:15)
[2021-12-30] MEDS ORDERED: Pioglitazone HCl 15 MG TAB PO SCH (16:15)
[2021-12-30] MEDS: Carvedilol 25 MG TAB PO SCH (16:27)
[2021-12-30] MEDS: metFORMIN 850 MG TAB PO SCH (16:29)
[2021-12-30] MEDS: HYDROcodone/Acetaminophen 5/325 mg Tablet PO PRN ×2 (16:45→20:28)
[2021-12-30] MEDS: Insulin Regular 300 UNITS/3 ML VIAL SC PRN (17:53)
[2021-12-30] MEDS: Gentamicin Sulfate 80 MG in Premix Bag 1 BAG IVPB SCH (17:53)
[2021-12-30 18:02] VITALS: BMI 30.4
[2021-12-30] MEDS: diphenhydrAMINE 25 MG CAP PO PRN (18:56)
[2021-12-30] MEDS: Amlodipine 5 MG TAB PO SCH (20:50)
[2021-12-30] MEDS: Amitriptyline HCl 10 MG TAB PO SCH (20:50)
[2021-12-30] MEDS: Famotidine 20 MG TAB PO SCH (20:50)
[2021-12-30] MEDS: Gabapentin 300 MG CAP PO SCH (20:50)
[2021-12-30] MEDS: Rosuvastatin 20 MG TAB PO SCH (20:51)
[2021-12-30] MEDS: Tamsulosin HCl 0.4 MG CAP PO SCH (20:51)
[2021-12-31] MEDS: Gentamicin Sulfate 80 MG in Premix Bag 1 BAG IVPB SCH ×4 (03:31→18:31)
[2021-12-31] MEDS: diphenhydrAMINE 25 MG CAP PO PRN ×2 (03:39→12:59)
[2021-12-31] MEDS: HYDROcodone/Acetaminophen 5/325 mg Tablet PO PRN ×5 (03:39→22:23)
[2021-12-31 05:41] LABS: #Eosinphils 0.4 thou/uL (0.0-0.7); #Lymphocytes 1.6 thou/uL (1.20-3.40); #Monocytes 0.4 thou/uL (0.11-0.59); #Neutrophils 4.2 thou/uL (1.40-6.50); %Basophils 0.3 % (0.0-1.0); %Lymphocytes 24.8 % (21.0-51.0); %Monocytes 6.1 % (0.0-10.0); %Neutrophils 62.9 % (42.0-75.0); Hemoglobin 13.4 g/dL (14.0-18.0); Mean Corpuscular HGB CONC 33.5 g/dL (32.0-36.0); Mean Corpuscular Hemoglobin 33.3 pg (27.0-31.0); Mean Corpuscular Volume 99.3 fL (78.0-98.0); Mean Platelet Volume 7.7 fL (7.4-10.4); Platelet Count 196 thou/uL (130-400); Red Blood Cell (RBC) Count 4.01 mill/uL (4.70-6.10); White Blood Cell (WBC) Count 6.6 thou/uL (4.8-10.8)
[2021-12-31 06:05] LABS: Anion Gap 14 mmol/L (10-20); BUN (Urea Nitrogen) 13 mg/dL (8.4-25.7); Calc. Creatinine Clearance 110 mL/min (70-130); Calcium 9.6 mg/dL (7.8-10.44); Carbon Dioxide 25 mmol/L (22-29); Chloride 101 mmol/L (98-107); Estimated GFR 89; Glucose 194 mg/dL (70-105); Potassium 4.4 mmol/L (3.5-5.1); Sodium 136 mmol/L (136-145)
[2021-12-31] MEDS: Insulin Regular 300 UNITS/3 ML VIAL SC PRN ×3 (06:31→20:57)
[2021-12-31] MEDS: metFORMIN 850 MG TAB PO SCH ×2 (08:18→16:11)
[2021-12-31] MEDS: Carvedilol 25 MG TAB PO SCH ×2 (08:18→16:10)
[2021-12-31] MEDS: Amlodipine 5 MG TAB PO SCH ×2 (08:19→20:48)
[2021-12-31] MEDS: Aspirin 325 mg Enteric Coated Tablet PO SCH (08:19)
[2021-12-31] MEDS: Clopidogrel Bisulfate 75 MG TAB PO SCH (08:20)
[2021-12-31] MEDS: Enoxaparin Sodium 40 MG/0.4 ML SYRINGE SC SCH (08:21)
[2021-12-31] MEDS: Famotidine 20 MG TAB PO SCH ×2 (08:21→20:48)
[2021-12-31] MEDS: Gabapentin 300 MG CAP PO SCH ×2 (08:22→20:48)
[2021-12-31] MEDS: glipiZIDE 5 MG TAB PO SCH (08:24)
[2021-12-31] MEDS: Pioglitazone HCl 15 MG TAB PO SCH (08:24)
[2021-12-31] MEDS: Sulfameth/Trimethoprim DS 800-160mg TAB PO SCH ×2 (08:24→20:48)
[2021-12-31] MEDS: Polyethylene Glycol 3350 17 GM Packet PO SCH (08:42)
[2021-12-31] MEDS: Tamsulosin HCl 0.4 MG CAP PO SCH (20:46)
[2021-12-31] MEDS: Rosuvastatin 20 MG TAB PO SCH (20:48)
[2021-12-31] MEDS: Amitriptyline HCl 10 MG TAB PO SCH (20:49)
[2022-01-01] MEDS: Gentamicin Sulfate 80 MG in Premix Bag 1 BAG IVPB SCH ×3 (02:40→18:49)
[2022-01-01] MEDS: HYDROcodone/Acetaminophen 5/325 mg Tablet PO PRN ×3 (06:01→16:47)
[2022-01-01] MEDS: Insulin Regular 300 UNITS/3 ML VIAL SC PRN (06:06)
[2022-01-01] MEDS: Carvedilol 25 MG TAB PO SCH ×2 (09:42→16:42)
[2022-01-01] MEDS: Gabapentin 300 MG CAP PO SCH ×2 (09:42→20:53)
[2022-01-01] MEDS: Famotidine 20 MG TAB PO SCH ×2 (09:42→20:53)
[2022-01-01] MEDS: Amlodipine 5 MG TAB PO SCH ×2 (09:42→20:53)
[2022-01-01] MEDS: Sulfameth/Trimethoprim DS 800-160mg TAB PO SCH ×2 (09:42→20:54)
[2022-01-01] MEDS: Aspirin 325 mg Enteric Coated Tablet PO SCH (09:42)
[2022-01-01] MEDS: metFORMIN 850 MG TAB PO SCH ×2 (09:42→16:42)
[2022-01-01] MEDS: Polyethylene Glycol 3350 17 GM Packet PO SCH (09:43)
[2022-01-01] MEDS: glipiZIDE 5 MG TAB PO SCH (09:43)
[2022-01-01] MEDS: Enoxaparin Sodium 40 MG/0.4 ML SYRINGE SC SCH (09:43)
[2022-01-01] MEDS: Clopidogrel Bisulfate 75 MG TAB PO SCH (09:43)
[2022-01-01] MEDS: Pioglitazone HCl 15 MG TAB PO SCH (09:43)
[2022-01-01] MEDS: Amitriptyline HCl 10 MG TAB PO SCH (20:53)
[2022-01-01] MEDS: Rosuvastatin 20 MG TAB PO SCH (20:53)
[2022-01-01] MEDS: Tamsulosin HCl 0.4 MG CAP PO SCH (20:54)
[2022-01-02] MEDS: HYDROcodone/Acetaminophen 5/325 mg Tablet PO PRN ×4 (00:35→16:10)
[2022-01-02] MEDS: Gentamicin Sulfate 80 MG in Premix Bag 1 BAG IVPB SCH ×2 (03:01→11:44)
[2022-01-02] MEDS: Insulin Regular 300 UNITS/3 ML VIAL SC PRN (05:40)
[2022-01-02] MEDS: Amlodipine 5 MG TAB PO SCH (09:13)
[2022-01-02] MEDS: Carvedilol 25 MG TAB PO SCH ×2 (09:13→16:11)
[2022-01-02] MEDS: Aspirin 325 mg Enteric Coated Tablet PO SCH (09:13)
[2022-01-02] MEDS: Sulfameth/Trimethoprim DS 800-160mg TAB PO SCH (09:13)
[2022-01-02] MEDS: Pioglitazone HCl 15 MG TAB PO SCH (09:13)
[2022-01-02] MEDS: Clopidogrel Bisulfate 75 MG TAB PO SCH (09:13)
[2022-01-02] MEDS: Gabapentin 300 MG CAP PO SCH (09:13)
[2022-01-02] MEDS: Polyethylene Glycol 3350 17 GM Packet PO SCH (09:14)
[2022-01-02] MEDS: glipiZIDE 5 MG TAB PO SCH (09:14)
[2022-01-02] MEDS: Famotidine 20 MG TAB PO SCH (09:14)
[2022-01-02] MEDS: metFORMIN 850 MG TAB PO SCH ×2 (09:14→17:51)
[2022-01-02] MEDS: Enoxaparin Sodium 40 MG/0.4 ML SYRINGE SC SCH (09:14)
[2022-01-02 11:49] VITALS: TEMP 98.3
[2022-01-02 16:05] VITALS: BP 150/85
== END 2022-01-02 17:58 | disposition home health service (06) | DRG 902 ==
LOC: SURG A 12-30 05:46 → EDSTATUS 12-30 15:15
PROVIDERS: ADMIT Thoracic Surgery (Cardiothoracic Vascular Surgery); ATTEND Thoracic Surgery (Cardiothoracic Vascular Surgery)
PROC: 0JBL0ZZ Excision of Right Upper Leg Subcutaneous Tissue and Fascia, Open Approach (ICD-10-PCS; principal; 2021-12-30)
DX: T81.30XA Disruption of wound, unspecified, initial encounter (principal); I96 Gangrene, not elsewhere classified; Z20.822 Contact with and (suspected) exposure to COVID-19; Z88.0 Allergy status to penicillin; Z88.5 Allergy status to narcotic agent; S31.103A Unspecified open wound of abdominal wall, right lower quadrant without penetration into peritoneal cavity, initial encounter
CPT/HCPCS: 36415; 36416; 80048; 80170; 82565; 84520; 85025; 85027; 87070; 87076; 87205; 87811; 93005; 97139; J0360; J1170; J1200; J1580; J1650; J1815; J2250; J2405; J2704; J3010

== ENCOUNTER 2023-04-27 03:31 | Emergency (ER) | payer MEDICARE, BC ==
[2023-04-27 03:57] LABS: #Eosinphils 0.3 thou/uL (0.0-0.7); #Monocytes 0.4 thou/uL (0.11-0.59); %Basophils 0.6 % (0.0-1.0); %Eosinophils 6.5 % (0.0-10.0); %Lymphocytes 27.1 % (21.0-51.0); %Monocytes 8.3 % (0.0-10.0); %Neutrophils 57.1 % (42.0-75.0); Hematocrit 39.9 % (42.0-52.0); Hemoglobin 13.4 g/dL (14.0-18.0); Mean Corpuscular HGB CONC 33.6 g/dL (32.0-36.0); Mean Corpuscular Hemoglobin 31.6 pg (27.0-31.0); Mean Corpuscular Volume 94.1 fl (78.0-98.0); Mean Platelet Volume 9.6 fL (7.4-10.4); Platelet Count 175 10x3/uL (130-400); RBC Distribution Width 13.8 % (11.5-14.5); Red Blood Cell (RBC) Count 4.24 mill/uL (4.70-6.10); White Blood Cell (WBC) Count 5.3 10x3/uL (4.8-10.8)
[2023-04-27] MEDS ORDERED: fentaNYL 50 mcg/mL 1 mL Vial ONE ×3 (04:02→10:32)
[2023-04-27 04:13] LABS: PTT 24.5 sec (22.9-36.1); Prothrombin Time 13.7 sec (12.0-14.7)
[2023-04-27 04:24] LABS: Bacteria/HPF None Seen HPF (None Seen); Bilirubin Negative (Negative); Blood, Urine Negative (Negative); CAUTI Indications for Culture Pelvic or flank pain; Clarity Clear (Clear); Glucose, Urine (Dipstick) 300 mg/dL (Negative); Ketone, Urine Negative (Negative); Leukocyte Negative Leu/uL (Negative); Nitrite Negative (Negative); Protein, Urine (Dipstick) Negative (Neg-Trace); RBC/HPF None Seen HPF (0-3); Squamous Epithelial 0-3 HPF (0-3); Urobilinogen Normal mg/dL (Less than 2); WBC/HPF None Seen HPF (0-3); pH, Urine 5.5 (5.0-9.0)
[2023-04-27 04:25] LABS: Urine Culture Reflex No No
[2023-04-27 04:25] LABS: ALT (SGPT) 32 U/L (8-55); AST (SGOT) 36 U/L (5-34); Albumin 4.4 g/dL (3.5-5.0); Alkaline Phosphatase 46 U/L (40-110); Anion Gap 18 mmol/L (10-20); BUN (Urea Nitrogen) 9 mg/dL (8.4-25.7); Bilirubin, Total 0.4 mg/dL (0.2-1.2); CK (CPK) 102 U/L (30-200); Calc. Creatinine Clearance 0 mL/min (70-130); Calcium 10.2 mg/dL (7.8-10.44); Carbon Dioxide 23 mmol/L (22-29); Chloride 98 mmol/L (98-107); Estimated GFR 51; Globulin 2.8 g/dL (2.4-3.5); Glucose 163 mg/dL (70-105); Potassium 4.4 mmol/L (3.5-5.1); Protein, Total 7.2 g/dL (6.0-8.3); Sodium 135 mmol/L (136-145)
[2023-04-27] MEDS ORDERED: Heparin 25,000 units/D5W 500 ML ONE (04:49)
[2023-04-27] MEDS ORDERED: Heparin 5,000 UNITS/ML VIAL ONE ×2 (04:57→05:00)
[2023-04-27] MEDS ORDERED: Amlodipine 5 MG TAB ONE (10:31)
[2023-04-27] MEDS ORDERED: Carvedilol 6.25 MG TAB ONE (10:32)
[2023-04-27 11:03] LABS: Prothrombin Time 14.1 sec (12.0-14.7)
[2023-04-27 11:04] LABS: PTT 73.3 sec (22.9-36.1)
[2023-04-27] MEDS ORDERED: Iopamidol 370 76% 100 ML VIAL ONE (13:31)
== END 2023-04-27 11:03 | disposition short-term general hospital (02) ==
LOC: ERS 03:31
DX: I70.92 Chronic total occlusion of artery of the extremities (principal); I10 Essential (primary) hypertension; I25.10 Atherosclerotic heart disease of native coronary artery without angina pectoris; Z79.84 Long term (current) use of oral hypoglycemic drugs; Z79.82 Long term (current) use of aspirin; Z87.891 Personal history of nicotine dependence
CPT/HCPCS: 73706; 80053; 81001; 82550; 85025; 85610 ×2; 85730 ×2; 93005; 94760; 96365; 96366; 96375; 96376; 99285; J3010; J1644; Q9967

== ENCOUNTER 2023-06-03 13:11 | Emergency (ER) | payer MEDICARE, BC ==
[2023-06-03] MEDS ORDERED: HYDROmorphone 0.5 MG/0.5 ML SYRINGE ONE ×2 (14:07→16:19)
[2023-06-03] MEDS ORDERED: Ondansetron PF 4 MG/2 ML Vial ONE (14:07)
[2023-06-03 14:11] LABS: #Eosinphils 0.3 thou/uL (0.0-0.7); #Monocytes 0.4 thou/uL (0.11-0.59); #Neutrophils 3.4 thou/uL (1.40-6.50); %Basophils 0.5 % (0.0-1.0); %Eosinophils 5.8 % (0.0-10.0); %Lymphocytes 28.6 % (21.0-51.0); %Monocytes 6.7 % (0.0-10.0); %Neutrophils 58.1 % (42.0-75.0); Hematocrit 37.4 % (42.0-52.0); Hemoglobin 12.5 g/dL (14.0-18.0); Mean Corpuscular HGB CONC 33.4 g/dL (32.0-36.0); Mean Corpuscular Hemoglobin 30.5 pg (27.0-31.0); Mean Corpuscular Volume 91.2 fl (78.0-98.0); Mean Platelet Volume 9.4 fL (7.4-10.4); Platelet Count 196 10x3/uL (130-400); RBC Distribution Width 13.5 % (11.5-14.5); White Blood Cell (WBC) Count 5.8 10x3/uL (4.8-10.8)
[2023-06-03 14:24] LABS: INR-International Normal Ratio 1.1; PTT 26.2 sec (22.9-36.1)
[2023-06-03 14:33] LABS: ALT (SGPT) 23 U/L (8-55); AST (SGOT) 35 U/L (5-34); Albumin 4.4 g/dL (3.4-4.8); Alkaline Phosphatase 36 U/L (40-110); Anion Gap 11 mmol/L (10-20); BUN (Urea Nitrogen) 10 mg/dL (8.4-25.7); Bilirubin, Total 0.5 mg/dL (0.2-1.2); Calc. Creatinine Clearance 0 mL/min (70-130); Calcium 9.3 mg/dL (7.8-10.44); Carbon Dioxide 25 mmol/L (23-31); Chloride 100 mmol/L (98-107); Estimated GFR 75; Globulin 2.7 g/dL (2.4-3.5); Glucose 167 mg/dL (80-115); Potassium 4.4 mmol/L (3.5-5.1); Protein, Total 7.1 g/dL (5.8-8.1); Sodium 132 mmol/L (136-145)
[2023-06-03] MEDS ORDERED: Heparin 5,000 UNITS/ML VIAL ONE (15:21)
[2023-06-03] MEDS ORDERED: Heparin 25,000 units/D5W 500 ML ONE (15:21)
== END 2023-06-03 16:39 | disposition short-term general hospital (02) ==
LOC: ERS 13:11
DX: I77.9 Disorder of arteries and arterioles, unspecified (principal); Z87.891 Personal history of nicotine dependence; E11.9 Type 2 diabetes mellitus without complications; I10 Essential (primary) hypertension; Z79.84 Long term (current) use of oral hypoglycemic drugs; Z79.899 Other long term (current) drug therapy; Z79.82 Long term (current) use of aspirin
CPT/HCPCS: 80053; 85025; 85610; 85730; 93005; 96365; 96375; 96376; J1170; J1644; J2405

== ENCOUNTER 2023-07-12 19:23 | Emergency (ER) | payer BC, MEDICARE ==
[~2023-07-12 19:23] MED LIST changes: -Heparin 10,000 UNITS/ 10 ML VIAL ONE; -Iopamidol 370 76% 100 ML VIAL ONE; -Iopamidol 370 76% 50 ML VIAL FS ONE; +Iopamidol-370 76% 500 ML MDV (1 ML CHARGE) ONE
[2023-07-12 20:26] LABS: #Eosinphils 0.3 thou/uL (0.0-0.7); #Monocytes 0.5 thou/uL (0.11-0.59); #Neutrophils 4.5 thou/uL (1.40-6.50); %Basophils 0.6 % (0.0-1.0); %Eosinophils 3.8 % (0.0-10.0); %Lymphocytes 18.7 % (21.0-51.0); %Monocytes 7.5 % (0.0-10.0); %Neutrophils 69.2 % (42.0-75.0); Hematocrit 30.5 % (42.0-52.0); Hemoglobin 10.1 g/dL (14.0-18.0); Mean Corpuscular HGB CONC 33.1 g/dL (32.0-36.0); Mean Corpuscular Hemoglobin 28.6 pg (27.0-31.0); Mean Corpuscular Volume 86.4 fl (78.0-98.0); Mean Platelet Volume 10.5 fL (7.4-10.4); Platelet Count 229 10x3/uL (130-400); RBC Distribution Width 14.2 % (11.5-14.5); Red Blood Cell (RBC) Count 3.53 mill/uL (4.70-6.10); White Blood Cell (WBC) Count 6.5 10x3/uL (4.8-10.8)
[2023-07-12] MEDS ORDERED: fentaNYL 50 mcg/mL 1 mL Vial ONE (20:39)
[2023-07-12 20:48] LABS: ALT (SGPT) 18 U/L (8-55); AST (SGOT) 22 U/L (5-34); Albumin 4.5 g/dL (3.4-4.8); Alkaline Phosphatase 63 U/L (40-110); Anion Gap 15 mmol/L (10-20); BUN (Urea Nitrogen) 13 mg/dL (8.4-25.7); Bilirubin, Total 0.8 mg/dL (0.2-1.2); Calc. Creatinine Clearance 0 mL/min (70-130); Calcium 9.8 mg/dL (7.8-10.44); Carbon Dioxide 24 mmol/L (23-31); Chloride 96 mmol/L (98-107); Estimated GFR 58; Globulin 2.7 g/dL (2.4-3.5); Glucose 370 mg/dL (80-115); Potassium 4.1 mmol/L (3.5-5.1); Protein, Total 7.2 g/dL (5.8-8.1); Sodium 131 mmol/L (136-145)
[2023-07-12 21:31] LABS: INR-International Normal Ratio 1.4; PTT 25.6 sec (22.9-36.1); Prothrombin Time 17.5 sec (12.0-14.7)
[2023-07-12] MEDS ORDERED: HYDROmorphone 0.5 MG/0.5 ML SYRINGE ONE ×3 (21:34→23:20)
[2023-07-12 23:25] LABS: Lactic Acid 1.2 mmol/L (0.5-2.2)
[2023-07-13] MEDS ORDERED: fentaNYL 50 mcg/mL 1 mL Vial ONE ×2 (00:13→03:41)
[2023-07-13] MEDS ORDERED: HYDROmorphone 0.5 MG/0.5 ML SYRINGE ONE (01:53)
[2023-07-13] MEDS ORDERED: Heparin 25,000 units/D5W 500 ML ONE (02:43)
== END 2023-07-13 04:03 | disposition short-term general hospital (02) ==
LOC: ERS 19:23
DX: T82.898A Other specified complication of vascular prosthetic devices, implants and grafts, initial encounter (principal); I77.1 Stricture of artery; E11.65 Type 2 diabetes mellitus with hyperglycemia; I10 Essential (primary) hypertension; I25.10 Atherosclerotic heart disease of native coronary artery without angina pectoris; I49.3 Ventricular premature depolarization; Z87.891 Personal history of nicotine dependence
CPT/HCPCS: 36415; 75635; 80053; 83605; 85025; 85610; 85730; 87040; 96365; 96375; 96376; J1170; J1644; J3010; Q9967